=== PATIENT | male | born 1980 | race Caucasian/White ===

== ENCOUNTER 2018-03-22 02:18 | Emergency (ER) | payer OTHER ==
[~2018-03-22] VITALS: Ht 182.9 cm; Wt 74.4 kg
[2018-03-22 02:34] VITALS: Ht 182.9 cm; Wt 74.4 kg
[2018-03-22 03:50] LABS: CALCIUM 9.2 mg/dL (8.5-10.1); CHLORIDE SERUM 105 mmol/L (98-107); CREATININE SERUM 1.1 mg/dL (0.7-1.3); GFR1 > 60 mL/min; GLUCOSE SERUM 120 mg/dL (74-106); POTASSIUM SERUM 3.8 mmol/L (3.5-5.1); SODIUM SERUM 140 mmol/L (136-145)
[2018-03-22 03:54] LABS: ALKALINE PHOSPHATASE 95 U/L (46-116); ALT/SGPT 23 U/L (16-63); AST/SGOT 20 U/L (15-37); BILIRUBIN TOTAL 0.32 mg/dL (0.20-1.00); LIPASE 249 IU/L (73-393); TOTAL PROTEIN, SERUM 6.9 g/dL (6.4-8.2)
[2018-03-22 04:05] LABS: ALBUMIN 3.3 g/dL (3.4-5.0)
[2018-03-22 04:21] LABS: BASOPHIL % 0.4 % (0-2); PLATELET COUNT 374 x10^3mcL (130-400); RED CELL DISTRIBUTION WIDTH 13.8 % (11.5-14.5)
[2018-03-22 05:31] VITALS: BP 138/87
== END 2018-03-22 05:31 | disposition home or self-care (01) ==
LOC: ED 02:18
PROVIDERS: Emergency Medicine
DX: N13.2 Hydronephrosis with renal and ureteral calculous obstruction (principal)
CPT/HCPCS: J1885; J7030

== ENCOUNTER 2018-08-10 13:32 | Emergency (ER) | payer OTHER ==
[~2018-08-10] VITALS: Ht 180.3 cm; Wt 77.1 kg
[2018-08-10 13:47] VITALS: BP 134/107; Ht 180.3 cm; Wt 77.1 kg
[2018-08-10 14:20] LABS: UA SPECIFIC GRAVITY >=1.030 (1.005-1.035); microscopic required? YES; urine erythrocyte TRACE (NEGATIVE)
== END 2018-08-10 14:44 | disposition home or self-care (01) ==
LOC: ED 13:32
PROVIDERS: Emergency Medicine
DX: N34.2 Other urethritis (principal); Z88.1 Allergy status to other antibiotic agents
CPT/HCPCS: 87491; 87591; J0696

== ENCOUNTER 2018-10-12 15:05 | Emergency (ER) | payer OTHER ==
[~2018-10-12] VITALS: Ht 170.2 cm; Wt 77.8 kg
[2018-10-12 15:18] VITALS: Ht 170.2 cm; Wt 77.8 kg
[2018-10-12 18:12] VITALS: BP 143/87
[2018-10-14 04:13] LABS: RAPID PLASMA REAGIN Non Reactive (Non Reactive)
== END 2018-10-12 18:08 | disposition home or self-care (01) ==
LOC: ED 15:05
PROVIDERS: Emergency Medicine
DX: N34.2 Other urethritis (principal); R36.9 Urethral discharge, unspecified; F17.210 Nicotine dependence, cigarettes, uncomplicated; Z88.1 Allergy status to other antibiotic agents
CPT/HCPCS: 87491; 87591; 99406; J0696

== ENCOUNTER 2019-03-12 13:42 | Emergency (ER) | payer OTHER ==
[~2019-03-12] VITALS: Ht 180.3 cm; Wt 77.1 kg
[2019-03-12 13:48] VITALS: BP 108/72; Ht 180.3 cm; Wt 77.1 kg
== END 2019-03-12 14:15 | disposition home or self-care (01) ==
LOC: ED 13:42
DX: S01.01XA Laceration without foreign body of scalp, initial encounter (principal); F17.210 Nicotine dependence, cigarettes, uncomplicated; Z88.1 Allergy status to other antibiotic agents; W18.09XA Striking against other object with subsequent fall, initial encounter; Y93.89 Activity, other specified; Y92.89 Other specified places as the place of occurrence of the external cause; Y99.8 Other external cause status